=== PATIENT | male | born 1950 | race Caucasian/White ===

== ENCOUNTER 2019-01-17 08:49 | Outpatient (CLI) | payer MEDICARE, OTHER ==
--- NOTE | 2019-01-17 10:52 | CARDIAC PROCEDURE NOTE ---
DATE OF SERVICE: 01/17/2019 Physician: Shreya Acosta MD, [facility] Ordering Provider: Prudence Robledo NP INDICATION: Dyspnea. CARDIAC RISK FACTORS: Male gender, family history of heart disease. PROCEDURE: After signing informed consent, the patient underwent a Frank- protocol treadmill stress test. No imaging was ordered with this test. RESTING HEART RATE: 88. PEAK HEART RATE: 138 (89% predicted maximum heart rate for age). RESTING BLOOD PRESSURE: 106/73. PEAK BLOOD PRESSURE: 194/64. Patient exercised for 5 minutes and 15 seconds on a Frank-protocol treadmill stress test. He achieved a peak heart rate of 138, which is 89% predicted maximum heart rate, and he achieved 7.05 METS. Exercise was stopped due to fatigue; he reported his perceived exertion at 14/20 on the Heidy scale. Patient had no chest pain. He described mild to moderate shortness of breath even at the end of stage 1; oxygen saturation was 93-97% on room air throughout the exercise. Patient had excessive blood pressure response to exercise, at peak. RESTING EKG: Normal sinus rhythm, within normal limits. EKG AT PEAK: Rare PACs, nonspecific upsloping ST segment depressions in leads V4 through V6. SUMMARY 1. Normal resting EKG. 2. Nonspecific changes for ischemia by EKG criteria, at a good level of stress. 3. Excessive BP response; this suggests aerobic deconditioning. 4. No imaging was ordered with this test. 5. Cardiac risk based on EKG criteria: Low to moderate. TD: 01/17/2019 10:37 KAIDEN
== END 2019-01-17 08:50 | disposition home or self-care (01) ==
LOC: DI 08:49
PROVIDERS: ATTEND Nurse Practitioner Family
DX: R06.00 Dyspnea, unspecified (principal); Z82.49 Family history of ischemic heart disease and other diseases of the circulatory system
CPT/HCPCS: 93017

== ENCOUNTER 2019-03-29 15:59 | Outpatient (CLI) | payer MEDICARE, OTHER ==
--- NOTE | 2019-03-29 16:46 | CT Report ---
Reason: DIZZINESS, NECK PAIN Procedure Date: 03/29/2019 Accession Number: [id number] / [id number] Procedure: CT - HEAD WO CPT Code: Final Report FULL RESULT: EXAM: CT HEAD EXAM DATE: 03/29/2019 04:27 PM. CLINICAL HISTORY: DIZZINESS, NECK PAIN. COMPARISON: None. TECHNIQUE: Multiaxial CT images were obtained from the foramen magnum to the vertex. Reformats: Sagittal and coronal. IV contrast: None. In accordance with CT protocol optimization, one or more of the following dose reduction techniques were utilized for this exam: automated exposure control, adjustment of mA and/or KV based on patient size, or use of iterative reconstructive technique. FINDINGS: Parenchyma: No intraparenchymal hemorrhage. No evidence of mass, midline shift, or CT findings of infarction. Zuniga-white differentiation is distinct. Extraaxial Spaces: Normal for age. No subdural or epidural collections identified. Ventricles: Normal in size and position. Sinuses and Orbits: Imaged paranasal sinuses, orbits, and mastoids show no significant abnormality. Bones: No evidence of fracture or calvarial defect. Other: None. IMPRESSION: No intracranial hemorrhage or mass-effect identified. If symptoms persist, follow-up MRI or CTA may be helpful for further evaluation. RADIA
--- NOTE | 2019-03-29 20:12 | XRAY Report ---
Reason: DIZZINESS, NECK PAIN Procedure Date: 03/29/2019 Accession Number: [id number] / [id number] Procedure: XR - Cervical Spine 2 View CPT Code: Final Report FULL RESULT: EXAM: CERVICAL SPINE RADIOGRAPHY EXAM DATE: 03/29/2019 04:46 PM. CLINICAL HISTORY: 68-year-old male. DIZZINESS, NECK PAIN. COMPARISONS: None. TECHNIQUE: 3 views. FINDINGS: Alignment: Normal. No spondylolisthesis or scoliosis. Bones: The cervical vertebral bodies and posterior elements are well visualized from the skull base through C7-T1. No fractures or bone lesions. Disks: Moderate to severe disk height loss and endplate sclerosis C3-C4 through C6-C7. Facets: Bilateral facet arthropathy C2-C3 through C6-C7. Soft Tissues: Normal. No prevertebral soft tissue swelling. The visualized lung apices are clear. IMPRESSION: No evidence of acute fracture or traumatic subluxation. No prevertebral soft tissue swelling. Moderate multilevel degenerative spondylosis. RADIA
== END 2019-03-29 16:00 | disposition home or self-care (01) ==
LOC: DI 15:59
PROVIDERS: ATTEND Registered Nurse
DX: R42 Dizziness and giddiness (principal); M47.812 Spondylosis without myelopathy or radiculopathy, cervical region; M50.81 Other cervical disc disorders, high cervical region
CPT/HCPCS: 70450; 72040

== ENCOUNTER 2020-07-02 11:09 | Outpatient (CLI) | payer MEDICARE ==
--- NOTE | 2020-07-02 15:18 | XRAY Report ---
PROCEDURE: Elbow 3 View RT INDICATIONS: PX IN RT ELBOW TECHNIQUE: 3 views of the elbow were acquired. COMPARISON: None FINDINGS: Bones: No fractures or dislocations. No suspicious bony lesions. Soft tissues: No elbow joint effusion. No suspicious soft tissue calcifications. IMPRESSION: No visualized acute fracture or dislocation. However, occult injury cannot be excluded. Recommend aretha rt interval imaging follow-up in 7-10 days as clinically indicated for additional evaluation. Reviewed by: Sully Baig MD on 07/02/2020 3:17 PM PDT Approved by: Sully Baig MD on 07/02/2020 3:17 PM PDT Station ID: [id number]
== END 2020-07-02 11:10 | disposition home or self-care (01) ==
LOC: DI.S 11:09
PROVIDERS: ATTEND Physician Assistant
DX: M25.521 Pain in right elbow (principal)

== ENCOUNTER 2020-08-11 15:36 | Outpatient (CLI) | payer MEDICARE ==
--- NOTE | 2020-08-11 20:51 | XRAY Report ---
PROCEDURE: Foot 3 View RT INDICATIONS: RIGHT FOOT PAIN TECHNIQUE: 3 views of the foot were acquired. COMPARISON: Correlation is made with the accompanying ankle plain films, 08/11/2020. FINDINGS: Bones: No fractures or dislocations. No suspicious bony lesions. Incidental note is made of an acc essory ossicle, an os peroneum. Incidental note is made of a bipartite medial sesamoid bone. Incide ntal note is made of a bipartite lateral sesamoid bone. Age-appropriate degenerative changes are see n. Toe alignment abnormalities can be seen. Soft tissues: No tibiotalar joint effusion. Achilles tendon appears normal. IMPRESSION: Age-appropriate degenerative changes are seen. Reviewed by: Tyrone Ellison MD on 08/11/2020 7:50 PM LORRAINE Approved by: Tyrone Ellison MD on 08/11/2020 7:50 PM LORRAINE Station ID: [id number]
--- NOTE | 2020-08-11 20:52 | XRAY Report ---
PROCEDURE: Ankle 3 View RT INDICATIONS: RIGHT FOOT PAIN TECHNIQUE: 3 views of the ankle were acquired. COMPARISON: Correlation is made with the accompanying foot plain films, 08/11/2020 FINDINGS: Bones: The tibiotalar joint is asymmetric and abnormal, narrowed medially. No fractures or dislocations. No suspicious bony lesions. Soft tissues: Generalized soft tissue swelling is seen. IMPRESSION: Abnormal medial narrowing of the tibiotalar joint. If it would be helpful for clinical management decision making, please consider a dedicated ankle MRI for further evaluation (assuming that there is no contraindication). Reviewed by: Tyrone Ellison MD on 08/11/2020 7:51 PM LORRAINE Approved by: Tyrone Ellison MD on 08/11/2020 7:51 PM LORRAINE Station ID: [id number]
== END 2020-08-11 23:59 | disposition home or self-care (01) ==
LOC: DI.S 15:36
PROVIDERS: ATTEND Emergency Medicine
DX: M79.671 Pain in right foot (principal)